=== PATIENT | male | born 1965 | race Native Hawaiian/Other Pacific Islander ===

== ENCOUNTER 2018-01-19 09:11 | Day surgery (SDC) | payer OTHER ==
[2018-01-19] MEDS ORDERED: Propofol 10 mg/ml Inj (20 ML) ONE ×2 (10:52→11:07)
[2018-01-19] MEDS ORDERED: Lactated Ringer's 1,000 ML IV ONE (10:53)
[2018-01-19] MEDS ORDERED: Midazolam 2 MG/2 ML VIAL ONE (10:54)
[2018-01-19 12:09] VITALS: TEMP 97
[2018-01-19 12:26] VITALS: RESP 18
[2018-01-19 12:39] VITALS: BP 132/79; PULSE 80; O2SAT 100
== END 2018-01-19 12:30 | disposition home or self-care (01) ==
LOC: C.ENDO 09:11
PROVIDERS: ATTEND Internal Medicine
DX: Z12.11 Encounter for screening for malignant neoplasm of colon (principal); R10.13 Epigastric pain; K63.5 Polyp of colon; K64.8 Other hemorrhoids; K21.0 Gastro-esophageal reflux disease with esophagitis; K29.70 Gastritis, unspecified, without bleeding
CPT/HCPCS: 43239; 45384; 82948; 88305; 88313; 88342; J2001; J2250; J2704; J7120